=== PATIENT | male | born 1980 ===

== ENCOUNTER 2019-06-30 10:25 | Outpatient (REF) | payer MEDICARE, MEDICAID, SELFPAY ==
[2019-07-02 15:18] LABS: Chlamydia Result Negative (Negative); GC Result Negative (Negative)
== END 2019-06-30 10:45 ==
LOC: LBN 10:25
PROVIDERS: PCP Family Medicine; Visit Provider Family Medicine
DX: Z11.3 Encounter for screening for infections with a predominantly sexual mode of transmission (principal)
CPT/HCPCS: 87491; 87591

== ENCOUNTER 2019-07-27 13:39 | Emergency (ER) | payer MEDICARE, MEDICAID, SELFPAY ==
[2019-07-27 13:41] VITALS: BP 134/69; PULSE 68; RESP 15; TEMP 36.5; O2SAT 98
--- NOTE | 2019-07-27 14:33 | ED.GENADUL_ITS ---
Discharge Plan Disposition Patient Disposition: HOME Condition: Stable Discharge Details Chief Complaint: Nk/Back Pain Clinical Impression: Neck pain Primary Care Provider: Javier Hartley Home Meds and New Rx's Prescriptions: No Action acetylcysteine 600 mg capsule 1,200 mg PO BID RF: 0 melatonin 10 mg capsule 10 mg PO HS PRNRF: 0 turmeric root extract 500 mg capsule 500 mg PO DAILY RF: 0 omega-3 fatty acids-fish oil [Fish Oil] 360-1,200 mg capsule 1 cap PO DAILY RF: 0 Discharge Instructions Instructions: Neck Pain (ED) Additional Instructions: Patient left the ER after evaluation but before formal discharge instructions were given Discharge Data Discharge Date/Time-TO BE ENTERED AT DEPARTURE: 07/27/19 14:37 Medical Decision Making 39-year-old gentleman who presents with posterior left-sided neck pain for the past 2 weeks after sleeping awkwardly with a neck pillow. He reports the pain is worse with movement. Examination reveals no acute distress,, 5 out of 5 strength, no spasm, and patient is neurologically intact. Discomfort is worse with movement especially that elongates his left paravertebral region. There is no midline point tenderness. No meningeal signs. Examination is most consistent with muscular discomfort. I see no evidence of cyst or tumor, erythema, warmth. There is no midline point tenderness. There is no clear indication for x-ray. No indication at this is infectious in process. We discussed conservative therapy with consistent anti-inflammatory therapy, gentle stretching, cool and/or warm compresses. We discussed returning to the ER for new or evolving symptoms otherwise following up with his primary care provider. He did discuss his concern for potential tumor. I again explained to him that I saw nothing on my physical examination that would indicate that there is a tumor present, emergent imaging not indicated, however I did encourage him to bring his concerns to his primary care provider if conservative therapy does not help his symptoms. Patient was agreeable to this plan Medical Records Medical records reviewed: Yes I reviewed the patient's medical records. HPI General Mode of arrival: ambulatory . Date/Time Provider Initiated Documentation: 07/27/19 14:04 . Limitations to Documentation: no limitations . Information obtained by: patient . HPI Narrative: 39-year-old gentleman presents to the ER complaining of left-sided neck pain for approximately 2 weeks. He denies any obvious trauma but reports that he used a neck pillow, slept awkwardly, and when he awoke the pain was present. He reports the pain is mild and is worse with movement. Denies any radiation of this pain, numbness, tingling, weakness. He has occasionally used Motrin for his discomfort but not consistently. Patient has a history of IBS, PTSD. He tells me that he is primarily concerned that he may have a tumor although he does not feel a lump. Denies any recent illness. No additional concerns at this time Related Data Home Medications Medication Instructions Recorded Confirmed acetylcysteine 600 mg capsule 1,200 mg PO BID cap 06/30/19 07/27/19 melatonin 10 mg capsule 10 mg PO HS PRN 06/30/19 07/27/19 omega-3 fatty acids-fish oil 360 1 cap PO DAILY 06/30/19 07/27/19 mg-1,200 mg capsule turmeric root extract 500 mg 500 mg PO DAILY 06/30/19 07/27/19 capsule Allergies Allergy/AdvReac Type Severity Reaction Status Date / Time bacitracin Allergy Hives Unverified 07/27/19 13:46 [From Neosporin ([id number])] neomycin Allergy Hives Unverified 07/27/19 13:46 [From Neosporin ([id number])] Penicillins Allergy Hives Unverified 07/27/19 13:46 polymyxin B Allergy Hives Unverified 07/27/19 13:46 [From Neosporin ([id number])] red dye Allergy Hives Unverified 07/27/19 13:46 General Stated Complaint: Nk/Back Pain SHANTANU: 4 Review of Systems Constitutional Constitutional: Denies fever(s), Denies headache(s) and Denies weakness ENT Ears, Nose, Mouth, and Throat: Denies headache(s), Denies neck mass, Reports neck pain and Denies sore throat Cardiovascular Cardiovascular: Denies chest pain and Denies dyspnea Respiratory Respiratory: Denies dyspnea Musculoskeletal Musculoskeletal: Reports neck pain, Denies numbness and Denies tingling Integumentary/Breasts Skin/Breast: Denies rash Neurologic Neurologic: Denies headache(s), Denies numbness, Denies tingling and Denies weakness [facility] Medical History Cocaine abuse in remission (Acute) Irritable bowel syndrome (Chronic) Major depression in complete remission (Acute) Other schizophrenia (Acute) Plantar wart (Acute) PTSD (post-traumatic stress disorder) (Acute) Surgical History History of repair of ACL (Acute ~2006) Done in [place] Social History Smoking/Tobacco Use Status: Current every day Tobacco: How many years used: 26 Alcohol Intake: current Alcohol Intake frequency: a few times a week Alcohol type: wine Drug use: Daily Substance use type: marijuana Housing: other Details: Living at [facility] - with plan to move into apartment. Communication Needs: Language Barriers current occupation: Works at [employer] Sexually active: Yes Current gender identity: male Do you feel safe at home: Yes Do you feel safe in your relationship?: Yes Exam Const General: cooperative, healthy appearing, comfortable and no acute distress Orientation: alert and awake HENPR Head: normal to inspection, normocephalic and atraumatic Mouth: moist mucous membranes Throat: posterior oropharynx normal Eyes Conjunctivae: conjunctivae normal Neck Neck: normal visual inspection, full ROM, no lymphadenopathy, no meningeal signs, trachea midline, supple and tender (Mild L posterior paravertebral muscular discomfort, worse with movement) Lymphatic: no lymphadenopathy noted Resp Effort & Inspection: normal respiratory effort and able to speak in complete sentences Auscultation: clear to auscultation bilaterally Cardio Rate: regular rate Rhythm: regular rhythm Back/Spine/Pelvis Back: No back tenderness Skin General skin exam: no rashes or lesions noted Neuro General: alert, awake, oriented x3, moves all extremities and no focal motor deficits Motor: muscle tone normal throughout, strength 5/5 throughout and no fasciculations Sensory Exam: no sensory deficits noted Extrem General: normal to inspection and full ROM Psych Appearance: grossly normal Mental Status: mental status grossly normal Course Vital Signs Vital signs: Vital Signs Temperature 36.5 C 07/27/19 13:41 Pulse 68 07/27/19 13:41 Respiratory Rate 15 07/27/19 13:41 Blood Pressure 134/69 07/27/19 13:41 Pulse Oximetry 98 07/27/19 13:41 Temperature 36.5 C 07/27/19 13:41 Temperature Source Temporal Artery Scan 07/27/19 13:41 Pulse 68 07/27/19 13:41 Respiratory Rate 15 07/27/19 13:41 Respiratory Effort Non-Labored 07/27/19 13:45 Blood Pressure 134/69 07/27/19 13:41 Blood Pressure Position Sitting 07/27/19 13:41 Pulse Oximetry 98 07/27/19 13:41 Oxygen Delivery Method Room Air 07/27/19 13:41 Oxygen Flow Rate 0 07/27/19 13:41 Pain Level 4 07/27/19 13:46
== END 2019-07-27 14:37 | disposition home or self-care (01) ==
PROVIDERS: Emergency Provider Physician Assistant; PCP Family Medicine
DX: M54.2 Cervicalgia (principal)
CPT/HCPCS: 99282

== ENCOUNTER 2020-04-25 03:08 | Outpatient (CLI) | payer MEDICARE, MEDICAID, SELFPAY ==
[2020-04-25 12:46] LABS: Calculated LDL 75 mg/dL (<100); Cholesterol 158 mg/dL (<200); HDL Cholesterol 55 mg/dL (40-60); Triglyceride 142 mg/dL (<150)
== END 2020-04-25 03:28 ==
PROVIDERS: PCP Family Medicine; Visit Provider Family Medicine
DX: Z13.6 Encounter for screening for cardiovascular disorders (principal)
CPT/HCPCS: 36415; 80061

== ENCOUNTER → 2020-04-26 13:26 | Outpatient (BNVA) | payer MEDICARE, MEDICAID, SELFPAY | PROVIDERS: PCP Family Medicine; Referring Provider Family Medicine; Visit Provider Surgery | DX: M79.5 Residual foreign body in soft tissue (principal) | CPT/HCPCS: 10120; 99202; 99213 ==

== ENCOUNTER 2020-08-20 05:29 | Emergency (ER) | payer MEDICARE, MEDICAID, SELFPAY ==
--- NOTE | 2020-08-20 05:31 | W.ED.GENAD ---
Discharge Plan Disposition Patient Disposition: HOME Condition: Good Discharge Details Clinical Impression: Abdominal pain, Constipation Primary Care Provider: Javier Hartley ED Provider: [place] Travis Haviland Meds and New Rx's Prescriptions: New polyethylene glycol 3350 [Miralax] 17 gram/dose powder 17 g PO DAILY Qty: 510 RF: 0 omeprazole 20 mg capsule,delayed release(DR/EC) 20 mg PO DAILY Qty: 30 RF: 0 Continued turmeric root extract 500 mg capsule 500 mg PO DAILY RF: 0 omega-3 fatty acids-fish oil [Fish Oil] 360-1,200 mg capsule 1 cap PO DAILY RF: 0 quetiapine [Seroquel] 100 mg tablet 100 mg PO TID PRN (Reason: sleep) Qty: 180 RF: 3 methylphenidate HCl 20 mg tablet 20 mg PO TID MDD 60 mg PRN (Reason: Attention deficit) Qty: 84 RF: 0 methylphenidate HCl 20 mg tablet 20 mg PO TID MDD 60 mg Qty: 84 RF: 0 methadone 10 mg/mL Concentrate 60 mg PO DAILY RF: 0 Discharge Instructions Instructions: Constipation (ED), Abdominal Pain (ED) Additional Instructions: Your symptoms are likely related to the methadone causing constipation and stomach acid causing epigastric discomfort/nausea. Your exam is otherwise unremarkable. Continue taking your fiber. Take the MiraLAX as directed for constipation. Take the omeprazole as directed for acid related disease. Follow-up with primary care in 1 to 2 weeks for recheck. Discussed with [facility] weaning you off methadone if you do not want to continue taking it. Return to ED if you develop spiking fevers, persistent vomiting, new or worsening pain. Referrals: Javier Hartley DO [Primary Care Provider] - Medical Decision Making Patient presents with ongoing abdominal issues that include constipation likely from his methadone as well as epigastric discomfort, early satiety, nausea and occasional vomiting likely acid related disease. Vital signs are normal. Abdomen is completely benign. There are no acute, sudden changes in his symptomatology. I do not feel labs or imaging are required at this time. Patient would like to stop the methadone. This will need to be done through the clinic where he receives it as it has been weaned off. Recommend using MiraLAX on a daily basis to help with constipation. Recommend trying omeprazole for the other abdominal symptoms and give it at least a week or 2 to see if there is any changes. Patient follow-up with his primary care. Return to ED if he develops fever, persistent vomiting, new worsening pain. Medical Records Medical records reviewed: Yes I reviewed the patient's medical records. HPI General Mode of arrival: ambulatory. Date/Time Provider Initiated Documentation: 08/20/20 05:30. Limitations to Documentation: no limitations. Information obtained by: patient, RN notes reviewed and old records reviewed. HPI Narrative: Patient presents to ED with complaint of epigastric discomfort, nausea, early satiety, constipation, occasional vomiting. Symptoms have been ongoing for some time. He missed an appointment with his primary care. He denies any acute change in his symptoms. He has not vomited for 2 days. He has no fever. He has no significant discomfort currently just some mild nausea. He is on methadone daily. He does take fiber to try to help with the constipation. He denies any cough, chest pain, shortness of breath. Denies any urinary symptoms. Related Data Home Medications Medication Instructions Recorded Confirmed omega-3 fatty acids-fish oil 360 1 cap PO DAILY 06/30/19 08/20/20 mg-1,200 mg capsule turmeric root extract 500 mg 500 mg PO DAILY 06/30/19 08/20/20 capsule quetiapine 100 mg tablet 100 mg PO TID PRN #180 tab 06/14/20 08/20/20 methylphenidate HCl 20 mg tablet 20 mg PO TID #84 tab MDD 60 mg 08/09/20 08/20/20 methylphenidate HCl 20 mg tablet 20 mg PO TID PRN #84 tab MDD 60 mg 08/09/20 08/20/20 methadone 60 mg PO DAILY 08/20/20 08/20/20 omeprazole 20 mg PO DAILY #30 cap 08/20/20 polyethylene glycol 3350 [Miralax] 17 g PO DAILY #510 g 08/20/20 Previous Rx's Medication Instructions Recorded quetiapine 100 mg tablet 100 mg PO TID PRN #180 tab 06/14/20 methylphenidate HCl 20 mg tablet 20 mg PO TID #84 tab MDD 60 mg 08/09/20 methylphenidate HCl 20 mg tablet 20 mg PO TID PRN #84 tab MDD 60 mg 08/09/20 omeprazole 20 mg PO DAILY #30 cap 08/20/20 polyethylene glycol 3350 [Miralax] 17 g PO DAILY #510 g 08/20/20 Allergies Allergy/AdvReac Type Severity Reaction Status Date / Time bacitracin Allergy Hives Verified 06/14/20 08:16 [From Neosporin ([id number])] neomycin Allergy Hives Verified 06/14/20 08:16 [From Neosporin ([id number])] Penicillins Allergy Hives Verified 06/14/20 08:16 polymyxin B Allergy Hives Verified 06/14/20 08:16 [From Neosporin ([id number])] red dye Allergy Hives Verified 06/14/20 08:16 General SHANTANU: 4 Review of Systems Narrative: As documented in HPI otherwise negative as below. Const: no fever, chills, weakness Resp: no cough, SOB, pleuritic pain CV: no CP, diaphoresis, edema, syncope GI: no diarrhea Neuro: no headache, numbness, focal weakness, confusion PFSH Medical History ADD (attention deficit disorder) Cocaine abuse in remission Erectile dysfunction Foreign body (FB) in soft tissue 1998, embedded in forehead Irritable bowel syndrome Major depression in complete remission Other schizophrenia Plantar wart 08/18/19 Dr Nichols PTSD (post-traumatic stress disorder) Surgical History History of repair of ACL (~2006) Done in [place] Social History Smoking/Tobacco Use Status: Current every day Tobacco Type: cigarettes Tobacco: How many years used: 26 Second Hand Exposure: Yes Smoking risk assessment performed?: Yes Alcohol Intake: current Alcohol Intake frequency: a few times a week Alcohol type: beer and wine Drug use: Daily Substance use type: marijuana Caregiver/Support person: No Household members: significant other Housing: apartment Communication Needs: Language Barriers current occupation: Works at [employer] Sexually active: Yes Do you think of yourself as: straight/heterosexual Current gender identity: male Yarelis/Orthodoxy: Yazidism Seatbelt use: sometimes Helmet use: No Drive intox or ride w/intox regional o[employer] company driver: No Do you feel safe at home: Yes Do you feel safe in your relationship?: Yes Exam Narrative Exam Narrative: Const: WDWN male in NAD. HEENT: NC/AT. Normal facial exam. Eyes: Normal conjunctiva and sclera. Neck: Supple. Trachea midline. Lungs: Normal respiratory effort. GI: Soft. NT/ND. No guarding or rebound. Neuro: A+O x 3. Normal speech, mentation, gait. Cranial nerves II - XII grossly intact. No gross motor or sensory deficit. Ext: No C/C/E.
[2020-08-20 05:32] VITALS: BP 135/73; PULSE 72; RESP 18; TEMP 36.4; O2SAT 99
== END 2020-08-20 06:00 | disposition home or self-care (01) ==
PROVIDERS: Emergency Provider Emergency Medicine; PCP Family Medicine
DX: R10.13 Epigastric pain (principal); K59.00 Constipation, unspecified; R68.81 Early satiety; R11.2 Nausea with vomiting, unspecified
CPT/HCPCS: 99283

== ENCOUNTER 2020-10-08 11:22 | Emergency (ER) | payer MEDICARE, MEDICAID, SELFPAY ==
[2020-10-08 11:25] VITALS: BP 129/84; PULSE 97; RESP 16; TEMP 36.6; O2SAT 99
--- NOTE | 2020-10-08 11:33 | W.ED.GENAD ---
Discharge Plan Disposition Patient Disposition: HOME Condition: Stable Discharge Details Clinical Impression: Knee pain, right Primary Care Provider: Javier Hartley ED Provider: Isaias Nolan Home Meds and New Rx's Prescriptions: Continued turmeric root extract 500 mg capsule 500 mg PO DAILY RF: 0 omega-3 fatty acids-fish oil [Fish Oil] 360-1,200 mg capsule 1 cap PO DAILY RF: 0 quetiapine [Seroquel] 100 mg tablet 100 mg PO TID PRN (Reason: sleep) Qty: 180 RF: 3 clonidine HCl 0.1 mg tablet 0.1 mg PO .COMPLEX Qty: 180 RF: 6 methylphenidate HCl 20 mg tablet 20 mg PO TID MDD 60 mg PRN (Reason: Attention deficit) Qty: 84 RF: 0 methylphenidate HCl 20 mg tablet 20 mg PO TID MDD 60 mg Qty: 84 RF: 0 polyethylene glycol 3350 [Miralax] 17 gram/dose powder 17 g PO DAILY Qty: 510 RF: 0 omeprazole 20 mg capsule,delayed release(DR/EC) 20 mg PO DAILY Qty: 30 RF: 0 Discharge Instructions Instructions: Knee Pain (ED) Additional Instructions: your exam and history is consistent with likely knee strain you can take 1000mg tylenol and 600mg ibuprofen every 6 hours for pain as needed follow up with your primary care provider within 1-2 weeks if symptoms continue if you have fevers, the knee becomes swollen and red or warm to touch return to the emergency department Medical Decision Making 40 yo male comes in with 2 weeks of nontraumatic right knee pain. 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 He took some time off and rested and the knee felt better but he again worked yesterday and pain returned. No fevers or swelling, denies ivdu and no rashes. Denies significant knee swelling. He has no visible or palpable deformities on exam. No swelling. No erythema or warmth. He can fully range the knee and has intact distal sensation. He has tenderness along in medial joint line. No calf swelling or tenderness. His exam and history consistent with either overuse injury or strain, less likely meniscus injury. Exam and history not consistent with septic joint. Given lack of trauma and full range of motion doubt fracture and do not feel xrays indicated. Will provide knee brace and advised to f/u with pcp if pain continues for possible MRI. Return precautions also given Differential Diagnosis Differential Diagnosis: overuse, strain, sprain, meniscus injury HPI General Mode of arrival: ambulatory. Date/Time Provider Initiated Documentation: 10/08/20 11:29. Limitations to Documentation: no limitations. Information obtained by: patient. History of Present Illness 40 year old M presents to the emergency department with the chief complaint of right knee pain, described as moderate, Quality is described as aching, and is localized to the right and lower extremity. Patient reports no radiation. Patient started experiencing this week(s) (2) and it has been intermittent. Rest improves symptom(s), Movement worsens symptoms . Patient notes no other symptoms.. Related Data Home Medications Medication Instructions Recorded Confirmed omega-3 fatty acids-fish oil 360 1 cap PO DAILY 06/30/19 10/08/20 mg-1,200 mg capsule turmeric root extract 500 mg 500 mg PO DAILY 06/30/19 10/08/20 capsule quetiapine 100 mg tablet 100 mg PO TID PRN #180 tab 06/14/20 10/08/20 omeprazole 20 mg PO DAILY #30 cap 08/20/20 10/08/20 polyethylene glycol 3350 [Miralax] 17 g PO DAILY #510 g 08/20/20 10/08/20 clonidine HCl 0.1 mg tablet 0.1 mg PO .COMPLEX #180 tab 10/06/20 10/08/20 methylphenidate HCl 20 mg tablet 20 mg PO TID #84 tab MDD 60 mg 10/06/20 10/08/20 methylphenidate HCl 20 mg tablet 20 mg PO TID PRN #84 tab MDD 60 mg 10/06/20 10/08/20 Previous Rx's Medication Instructions Recorded quetiapine 100 mg tablet 100 mg PO TID PRN #180 tab 06/14/20 omeprazole 20 mg PO DAILY #30 cap 08/20/20 polyethylene glycol 3350 [Miralax] 17 g PO DAILY #510 g 08/20/20 clonidine HCl 0.1 mg tablet 0.1 mg PO .COMPLEX #180 tab 10/06/20 methylphenidate HCl 20 mg tablet 20 mg PO TID #84 tab MDD 60 mg 10/06/20 methylphenidate HCl 20 mg tablet 20 mg PO TID PRN #84 tab MDD 60 mg 10/06/20 Allergies Allergy/AdvReac Type Severity Reaction Status Date / Time bacitracin Allergy Hives Verified 10/08/20 11:30 [From Neosporin ([id number])] neomycin Allergy Hives Verified 10/08/20 11:30 [From Neosporin ([id number])] Penicillins Allergy Hives Verified 10/08/20 11:30 polymyxin B Allergy Hives Verified 10/08/20 11:30 [From Neosporin ([id number])] red dye Allergy Hives Verified 10/08/20 11:30 General Stated Complaint: Orthopedic SHANTANU: 4 Review of Systems All systems reviewed & are unremarkable except as noted in HPI and below Constitutional Constitutional: Denies chills, Denies fever(s) and Denies weakness Cardiovascular Cardiovascular: Denies chest pain and Denies dyspnea Respiratory Respiratory: Denies cough and Denies dyspnea Gastrointestinal Gastrointestinal: Denies abdominal pain, Denies nausea and Denies vomiting Genitourinary Genitourinary: Denies dysuria Musculoskeletal Musculoskeletal: Denies joint swelling Neurologic Neurologic: Denies weakness [facility] Medical History (Updated 10/08/20 @ 11:44 by Isaias Nolan MD) ADD (attention deficit disorder) Cocaine abuse in remission Erectile dysfunction Foreign body (FB) in soft tissue 1998, embedded in forehead Irritable bowel syndrome Major depression in complete remission Opiate dependence On methadone Other schizophrenia Plantar wart 08/18/19 Dr Nichols PTSD (post-traumatic stress disorder) Surgical History History of repair of ACL (~2006) Done in [place] Family History (Updated 08/26/20 @ 13:51 by Carly Fang RN) Brother Anxiety Depression Sister Anxiety Depression Nephew Anxiety Depression Mother Hypertension Social History (Updated 08/26/20 @ 11:13 by Carly Fang RN) Smoking/Tobacco Use Status: Current every day Tobacco Type: cigarettes Smoking packs per day: 0.5 Smoking cigarettes per day: 10.0 Tobacco: How many years used: 26 Quit status: considering quitting Second Hand Exposure: Yes Smoking risk assessment performed?: Yes Alcohol Intake: never Drug use: Daily Substance use type: marijuana Caregiver/Support person: No Housing: apartment Communication Needs: Language Barriers current occupation: Works at [employer] Pets and animals: No Sexually active: Yes Do you think of yourself as: straight/heterosexual Current gender identity: male What is your relationship status?: How often do you talk on the phone with friends or family?: three or more times per week How often do you get together with friends or relatives?: three or more times per week How often do you attend baptism or restorationist services?: 4 or more times per year Do you belong to any clubs or organized social groups?: no Panel score (0-1 are the most socially isolated patients): 2 What type of physical activity do you participate in: none Yarelis/Baptist: Temple Special yarelis needs: No Seatbelt use: always Helmet use: Yes Drive intox or ride w/intox substitute bus driver: No Do you feel safe at home: Yes Do you feel safe in your relationship?: Yes Victim of physical abuse: No Victim of emotional abuse: No Victim of sexual abuse: No Would you like helpful sources: No Exam Const General: no acute distress Orientation: alert HENMT Head: normal to inspection Ears: external ears normal General nose exam: external nose normal Mouth: moist mucous membranes Eyes General: appearance normal, both eyes and all related structures Neck Neck: normal visual inspection Resp Effort & Inspection: normal respiratory effort and able to speak in complete sentences Cardio Rate: regular rate Skin General skin exam: no rashes or lesions noted Neuro General: patient alert and patient oriented x3 Extrem General: full ROM and capillary refill normal Psych Mental Status: mental status grossly normal Course Vital Signs Vital signs: Vital Signs Temperature 36.6 C 10/08/20 11:25 Pulse 97 H 10/08/20 11:25 Respiratory Rate 16 10/08/20 11:25 Blood Pressure 129/84 10/08/20 11:25 Pulse Oximetry 99 10/08/20 11:25 Temperature 36.6 C 10/08/20 11:25 Temperature Source Temporal Artery Scan 10/08/20 11:25 Pulse 97 H 10/08/20 11:25 Respiratory Rate 16 10/08/20 11:25 Respiratory Effort Non-Labored 10/08/20 11:29 Blood Pressure 129/84 10/08/20 11:25 Blood Pressure Position Sitting 10/08/20 11:25 Pulse Oximetry 99 10/08/20 11:25 Oxygen Delivery Method Room Air 10/08/20 11:25 Oxygen Flow Rate 0 10/08/20 11:25 Pain Level 5 10/08/20 11:25
== END 2020-10-08 11:49 | disposition home or self-care (01) ==
PROVIDERS: Emergency Provider Emergency Medicine; PCP Family Medicine
DX: M25.561 Pain in right knee (principal)
CPT/HCPCS: 29505; 99283

== ENCOUNTER 2020-10-19 02:19 | Outpatient (CLI) | payer MEDICARE, MEDICAID, SELFPAY ==
--- NOTE | 2020-10-19 06:45 | DI.RAD_ITS ---
Exam(s) XR KNEE RT 3V AP,LAT,NYLA EXAM: XR KNEE RT 3V AP,LAT,NYLA CLINICAL HISTORY: Non-traumatic R knee pain.,M25.561. TECHNIQUE: 2D digital imaging was performed. COMPARISON: None FINDINGS: There is no evidence of fracture. . Small amount of increased fluid noted but no large joint effusio n. No degenerative changes. No osseous lesions. Bone density is age appropriate. IMPRESSION: DATA REPOSITORY: RADIATION DOSE DELIVERED:
== END 2020-10-19 02:39 ==
PROVIDERS: PCP Family Medicine; Visit Provider Family Medicine
DX: M25.561 Pain in right knee (principal)
CPT/HCPCS: 73562

== ENCOUNTER 2020-12-04 17:54 | Emergency (ER) | payer MEDICARE, MEDICAID, SELFPAY ==
--- NOTE | 2020-12-04 17:59 | NUR.NOTE ---
Nursing Note: Patient stated to [facility] that he would not stay because his girlfriend could not come in to the ED with him. She stated she was vaccinated, but unable to show proof of this with her card. Anabel Madrid
== END 2020-12-04 18:00 | disposition left before discharge ==
LOC: ER 18:01
PROVIDERS: PCP Family Medicine
DX: Z53.21 Procedure and treatment not carried out due to patient leaving prior to being seen by health care provider (principal)

== ENCOUNTER 2020-12-04 18:47 | Emergency (ER) | payer MEDICARE, MEDICAID, SELFPAY ==
[2020-12-04 18:53] VITALS: BP 127/73; PULSE 58; RESP 16; TEMP 37.3; O2SAT 100
--- NOTE | 2020-12-04 19:30 | DI.CT_ITS ---
Exam(s) CT HEAD WO EXAM: CT HEAD WO CLINICAL HISTORY: hitting head, headache. TECHNIQUE: Imaging Protocol: Axial computed tomography images with coronal and sagittal reformatted images were created and reviewed COMPARISON: No exams were available for comparison FINDINGS: There are no skull fractures nor fluid in the visualized paranasal sinuses. There is no evidence of intracranial hemorrhage, mass effect, or shift of midline structures. There are no extra-axial fluid collections. The ventricles are not enlarged or shifted and there is no blo od within the ventricular system nor within the basal cisterns. IMPRESSION: No acute intracranial findings on this noninfused CT scan of the brain. RADIATION DOSE DELIVERED: 730.18mGy.cm Total DLP DATA REPOSITORY: All CT scans at this facility are submitted to the National Radiology Data Registry (NRDR) Dose Index Registry (DIR) with the [employer] (ACR). RADIATION OPTIMIZATION: All CT scans at this facility use at least one of these dose optimization te chniques: automated exposure control; mA and/or kV adjustment per patient size (includes targeted exa ms where dose is matched to clinical indication); or iterative reconstruction.
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
[2020-12-04 19:56] LABS: Abs Immature Grans 0.02 10^3/uL (0.0-0.06); Absolute Basophil Count 0.05 10^3/uL (0.0-0.2); Absolute Eosinophil Count 0.07 10^3/uL (0.0-0.7); Absolute Lymphocyte Count 2.32 10^3/uL (1.2-3.4); Absolute Monocyte Count 0.71 10^3/uL (0.1-0.8); Absolute Neutrophil Count 5.88 10^3/uL (1.2-6.7); Basophils % 0.6; Eosinophils % 0.8; HCT 42.3 % (40.0-50.0); HGB 14.1 g/dL (13.5-17.5); Immature Grans % 0.2; Lymphocytes % 25.6; MCH 29.6 pg (27.0-33.0); MCHC 33.3 % (32.0-36.0); MCV 88.9 fL (80-95); Monocytes % 7.8; Nucleated RBC 0 %; Platelet Count 228 10^3/uL (130-400); RBC 4.76 10^6/uL (4.36-5.78); RDW 12.3 % (11.8-14.1); RDW-SD 40.7 fL; WBC 9.05 10^3/uL (4.4-10.8)
[2020-12-04 20:08] LABS: ALT 33 U/L (16-63); AST 31 U/L (15-37); Albumin 3.5 g/dL (3.4-5.0); Alkaline Phosphatase 56 U/L (46-116); Anion Gap 9.6 mmol/L (3-11); BUN 7 mg/dL (7-18); Bilirubin, Total 0.3 mg/dL (0.2-1.0); CO2 28.4 mmol/L (21.0-32.0); Calcium 8.7 mg/dL (8.5-10.1); Chloride 105 mmol/L (98-107); Glucose 120 mg/dL (74-106); Potassium 3.5 mmol/L (3.5-5.1); Sodium 143 mmol/L (136-145); Total Protein 6.9 g/dL (6.4-8.2)
--- NOTE | 2020-12-04 20:21 | DI.VRAD_ITS ---
PROCEDURE INFORMATION: Exam: CT Head Without Contrast Exam date and time: 12/04/2020 7:38 PM Age: 40 years old Clinical indication: Pain; Headache not specified; Patient HX: Hitting head, headache on both sides TECHNIQUE: Imaging protocol: Computed tomography of the head without contrast. Radiation optimization: All CT scans at this facility use at least one of these dose optimization techniques: automated exposure control; mA and/or kV adjustment per patient size (includes targeted exams where dose is matched to clinical indication); or iterative reconstruction. COMPARISON: No relevant prior studies available. FINDINGS: Brain: Normal. No hemorrhage. Unremarkable white matter. No mass effect. Cerebral ventricles: No ventriculomegaly. Paranasal sinuses: Visualized sinuses are unremarkable. No fluid levels. Mastoid air cells: Visualized mastoid air cells are well aerated. Bones/joints: Unremarkable. No acute fracture. Soft tissues: Unremarkable. IMPRESSION: No acute intracranial abnormality. Dictated and Authenticated by: Juan Gómez MD. Ordering:JOEY Wild MD
[2020-12-04 20:25] LABS: ETHANOL BLOOD < 3.0 mg/dL (<3); Salicylate < 2.8 mg/dL (<2.8)
[2020-12-04 20:26] LABS: Acetaminophen < 2 ug/mL (10-30)
[2020-12-04] MEDS: QUEtiapine 100 MG TAB PO (20:37)
[2020-12-04 20:44] LABS: Source Nasal/Nares
[2020-12-04 21:12] LABS: *AMPHETAMINES SCREEN URINE Negative (Negative); *BARBITURATES SCREEN URINE Negative (Negative); *BENZODIAZEPINES SCREEN URINE Negative (Negative); Cannabinoids THC Positive (Negative); Cocaine Screen,Urine Positive (Negative); METHADONE URINE SCREEN Negative (Negative); OPIATES URINE SCREEN Negative (Negative); Tricyclic Antidepressants Negative (Negative)
[2020-12-04 21:43] LABS: COVID-19 PCR Negative (Negative)
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
--- NOTE | 2020-12-05 09:34 | NUR.NOTE ---
Care management in roomNursing Note:
[2020-12-05] MEDS: QUEtiapine 100 MG TAB PO ×3 (09:49→20:43)
--- NOTE | 2020-12-05 10:04 | NUR.NOTE ---
PTs humane officer came into ED and presented us with his badge and let us know that he needed to cut off ankle bracelet. This CLINICAL RESEARCH SPEC was present the entire time and PT was cooperative. RN notified.Nursing Note:
--- NOTE | 2020-12-05 10:59 | NUR.NOTE ---
Mental health in room with PT Nursing Note:
--- NOTE | 2020-12-05 11:08 | PDOC.MHCN ---
Date of service: 12/05/20 Time of Service: 11:09 Mental Health Crisis Note Presenting Issue How did you arrive at the ED and why did you come: Pt arrived on 12.04.2020 via his girlfriend due to an increase in depression with SI, plan, attempt and persistent intent. Precipitating Factors Pt endorsed continued persistent suicidal ideation. He does not appear to have any signs of delusions however, also does not engage in much conversation either. Disposition BEHAVIOR: Pt is lying in bed covered with his blanket. He does not make any eye contact even to acknowledge this clinician or the other ESC, Zoe Gillespie in the room. It is reported by the overnight and day time providers to not be a behavior problem. However, it was reported somewhere that this Pt has a history of explosive behaviors and this has not been made clear as to where that information came from. EYE CONTACT: Pt refused to make eye contact. MOOD: Pt endorsed he is still feeling the same as he did when he arrived. AFFECT: Affect is non-engaging with eyes closed and at one point tearful. APPETITE: Pt reported that he is not he is not hungry and has not eaten anything today. SLEEP(trouble falling/staying asleep: Pt reported that he slept in the entire night without issue. Plan Pt is still seeking voluntary admission and hospitals have been called. Referrals are sent to [facility], [facility], [facility] and [facility]. [facility] has many waiting in their ER. A huddle was had and we will wait to hear back form the hospitals we made referrals too. Signature Clinician's Name/Title: Anuja Cm MS, [facility] Emergency Services Clinician, [facility]
--- NOTE | 2020-12-05 11:36 | NUR.NOTE ---
in room. Nursing Note:
--- NOTE | 2020-12-05 12:49 | CMSP_ITS ---
- If Service Date Differs Date of service: 12/05/20 Time of Service: 12:49 Care Management Safety Plan Status: Voluntary - Reason for Wait Reason for Wait: Inpatient Admission VOLUNTARY FOR INPATIENT PSYCHIATRIC STABILIZATION. Patient is appropriate in all interactions since arriving at [facility]; Pt has demonstrated appropriate coping and communication skills, has articulated his or her needs and concerns and is fully engaged during staff interactions. A huddle is held with Salina, nursing production welding supervisor, Dr. Alexandra Haskins, ED provider, Shelby, charge nurse, Anuja [facility], Zoe [facility], and GENARO Collins, in attendance. Safety plan has been established with patient, and care team, to adhere to patient goals, identify restrictions based on behavioral status, address nutrition, and determine allowed personal belongings, tools for hygiene and personal care. Determine level of activity including ambulation, level of supervision, visitors, and determine privileges based on behaviors and level of engagement by pt. SAFETY PLAN: 1. Will remain on suicide precautions. In Paper Clothes 2. Will remain in room under direct supervision of one-on-one staff at all times provided by CPSO, KIANNA, MATERIALS MANAGEMENT SUPERVISOR health information director. 3. May have paper cups, plates, finger foods as well as a cardboard spoon with which to eat meals. 4. Follow [facility] Management of the Admitted Behavioral Health Patient policy. 5. Personal Care: Shower permitted with supervision and at RN discretion. 6. No personal belongings. 7. Visitors: Per [facility] visitor policy and at RN discretion. 8. Activities: Soft cart items, music tablet, television and remote if available, and other activities at RN discretion. 9. Bathroom privileges with escort while in the ED. May use bathroom available in room without restrictions on Med/Surg. 10. Phone: May use hospital phone for incoming and outgoing telephone calls at RN discretion. 11. Due to VOLUNTARY status, if patient wishes to leave [facility], staff will contact [facility] Crisis Screener ([phone]) and On-Call Waxer Floor ([phone]) as soon as possible. In the event of elopement, notify [facility] Police ([phone]). Patient is currently voluntarily at [facility] and seeking inpatient admission when a bed becomes available. [facility] Frontline Emd Teacher will continue seeking placement. Please contact the Looping Machine Operator Waxer Floor ([phone]) and [facility] Emd Teacher ([phone]) for any needed changes in the Safety Plan. Safety plan has been provided to interdepartmental care team.
--- NOTE | 2020-12-05 12:49 | PDOC.CMSAFED ---
- If Service Date Differs Date of service: 12/05/20 Time of Service: 12:49 Care Management Safety Plan Status: Voluntary - Reason for Wait Reason for Wait: Inpatient Admission VOLUNTARY FOR INPATIENT PSYCHIATRIC STABILIZATION. Patient is appropriate in all interactions since arriving at [facility]; Pt has demonstrated appropriate coping and communication skills, has articulated his or her needs and concerns and is fully engaged during staff interactions. A huddle is held with Salina, nursing home health clinical supervisor, Dr. Alexandra Haskins, ED provider, Shelby, charge nurse, Anuja [facility], Zoe [facility], and GENARO Collins, in attendance. Safety plan has been established with patient, and care team, to adhere to patient goals, identify restrictions based on behavioral status, address nutrition, and determine allowed personal belongings, tools for hygiene and personal care. Determine level of activity including ambulation, level of supervision, visitors, and determine privileges based on behaviors and level of engagement by pt. SAFETY PLAN: 1. Will remain on suicide precautions. In Paper Clothes 2. Will remain in room under direct supervision of one-on-one staff at all times provided by CPSO, KIANNA, PHYSICIST LIGHT AND OPTICS fundraising coordinator. 3. May have paper cups, plates, finger foods as well as a cardboard spoon with which to eat meals. 4. Follow [facility] Management of the Admitted Behavioral Health Patient policy. 5. Personal Care: Shower permitted with supervision and at RN discretion. 6. No personal belongings. 7. Visitors: Per [facility] visitor policy and at RN discretion. 8. Activities: Soft cart items, music tablet, television and remote if available, and other activities at RN discretion. 9. Bathroom privileges with escort while in the ED. May use bathroom available in room without restrictions on Med/Surg. 10. Phone: May use hospital phone for incoming and outgoing telephone calls at RN discretion. 11. Due to VOLUNTARY status, if patient wishes to leave [facility], staff will contact [facility] Crisis Screener ([phone]) and On-Call Tree Surgeon ([phone]) as soon as possible. In the event of elopement, notify [facility] Police ([phone]). Patient is currently voluntarily at [facility] and seeking inpatient admission when a bed becomes available. [facility] Frontline Screening Tech will continue seeking placement. Please contact the Laborer Dairy Farm Tree Surgeon ([phone]) and [facility] Screening Tech ([phone]) for any needed changes in the Safety Plan. Safety plan has been provided to interdepartmental care team.
[2020-12-05] MEDS: Ibuprofen 600 MG TAB PO (14:14)
--- NOTE | 2020-12-05 14:51 | CMPROGNOTE_ITS ---
- If Service Date Differs Date of service: 12/05/20 Time of Service: 14:51 Care Management Progress Note S/O: Brian is a 40 year old male who presents to the ED for suicidal ideation with intent and plan. He has the bedsheet pulled over his head when CM comes to meet with him. He provides brief answers to questions asked of him but does not uncover his head during the conversation. Brian is reportedly on probation for charges unknown to this publicity writer. His tactical intelligence officer is Reed Marsh ([phone]). Brian is voluntarily seeking placement. He was evaluated by Seng, [facility] Crisis Workers, this morning and found to meet criteria for a psychiatric hospitalization. A: Brian remains at [facility] awaiting a voluntary psychiatric placement. P: Referrals are faxed to [facility], [facility], [facility], and [facility] for review. There are no available psychiatric beds today. Brian will remain at [facility] on voluntary status while [facility] continues to seek placement for him. CM will continue to follow. - Status Status: Voluntary - Reason for Wait Reason for Wait: Inpatient Admission
[2020-12-05] MEDS: LORazepam 1 MG TAB PO (20:42)
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
[2020-12-06] MEDS: QUEtiapine 100 MG TAB PO ×3 (06:07→23:23)
[2020-12-06] MEDS: LORazepam 1 MG TAB PO ×3 (07:28→23:22)
--- NOTE | 2020-12-06 11:47 | PDOC.MHCN ---
Date of service: 12/06/20 Time of Service: 11:47 Mental Health Crisis Note Presenting Issue How did you arrive at the ED and why did you come: Pt arrived 2 days ago via his fiance seeking a voluntary psychiatric admission. Precipitating Factors Pt continued to endorse SI today and denied HI. He reported that his SI is chronic in nature and if he was going to kill himself he would have done it a long time a go. He does however, endorse auditory hallucinations. Disposition BEHAVIOR: This clinician participated in the PT's second certification with Dr. Jef Camacho from [facility]. Pt was initially resistant and not engaging but was able to some near the end. The Pt stated that he is stressed and sick of people targeting him. EYE CONTACT: Eye contact varied with the psychiatrist and was more consistent with this clinician when explaining the questions being asked. MOOD: Mood appeared depressed and agitated. AFFECT: Affect is flat. APPETITE: Pt reported he is eating well. SLEEP(trouble falling/staying asleep: Pt has been sleeping fine. Plan Pt will remain at [facility] on EE status. Placement was sought and no beds available today. Pt will be assessed twice daily until placement is found or he is able to regulate and be able to safety plan home. Signature Clinician's Name/Title: Anuja Cm MS, [facility] Emergency Services Clinician
--- NOTE | 2020-12-06 14:35 | CMSP_ITS ---
- If Service Date Differs Date of service: 12/06/20 Time of Service: 14:35 Care Management Safety Plan Status: Involuntary - Reason for Wait Reason for Wait: Inpatient Admission INVOLUNTARY FOR INPATIENT PSYCHIATRIC STABILIZATION. A huddle is held at approximately 11:45 am with Rosalio, ED Director, Salina, nursing mammography supervisor, Nadja, charge nurse, Erica, RN, Yuli, RN, Anuja, [facility], and Karina LAM. Safety plan has been established to meet the needs of the patient, and consideration of the care team, to adhere to patient goals, identify restrictions based on behavioral status, address nutrition, and determine allowed personal belongings, tools for hygiene and personal care. Determine level of activity including ambulation, level of supervision, visitors, and determine privileges based on behaviors and level of engagement by pt. SAFETY PLAN: 1. Will remain on SI/HI precautions. In Paper Clothes 2. Will remain in room under direct supervision of one-on-one staff at all times provided by CPSO, KIANNA, RETAIL ASSISTANT STORE MANAGER artificial breast fabricator. 3. May have paper cups, plates, finger foods as well as a cardboard spoon with which to eat meals. 4. Follow [facility] Management of the Admitted Behavioral Health Patient policy. 5. Personal care: Shower permitted with supervision at RN discretion. 6. No personal belongings. 7. Visitors: Per [facility] visitor police and at RN discretion. 8. Activities: Soft cart items, music tablet, television and remote if available, and other activities at RN discretion. 9. Bathroom privileges with escort while in the ED. May use bathroom available in room without restrictions on Med/Surg. 10. Phone: May use hospital phone for incoming and outgoing telephone calls at RN discretion. 11. Due to INVOLUNTARY status, patient is being held at [facility] by the Department of Mental Health ([facility]). A 2nd certification by [facility] Psychiatrist occurred this morning and the EE was upheld by the State Psychiatrist. Staff will provide de- escalation support (CPI) as needed. If patient wishes to leave [facility], staff will contact [facility] Crisis Screener ([phone]) and On-Call Field Naturalist ([phone]) as soon as possible. In the event of elopement, notify [facility] Police ([phone]). Patient is currently involuntarily at [facility]. [facility] Frontline Real Estate Investor will continue seeking placement. Please contact the Asphalt Patcher Field Naturalist ([phone]) for any needed changes to Safety Plan. Safety plan has been provided to interdepartmental care team. Patient will be transported by sheriff's officer at time of discharge.
--- NOTE | 2020-12-06 14:35 | PDOC.CMSAFED ---
- If Service Date Differs Date of service: 12/06/20 Time of Service: 14:35 Care Management Safety Plan Status: Involuntary - Reason for Wait Reason for Wait: Inpatient Admission INVOLUNTARY FOR INPATIENT PSYCHIATRIC STABILIZATION. A huddle is held at approximately 11:45 am with Rosalio, ED Director, Salina, nursing shell shop supervisor, Nadja, charge nurse, Erica, RN, Yuli, RN, Anuja, [facility], and Karina LAM. Safety plan has been established to meet the needs of the patient, and consideration of the care team, to adhere to patient goals, identify restrictions based on behavioral status, address nutrition, and determine allowed personal belongings, tools for hygiene and personal care. Determine level of activity including ambulation, level of supervision, visitors, and determine privileges based on behaviors and level of engagement by pt. SAFETY PLAN: 1. Will remain on SI/HI precautions. In Paper Clothes 2. Will remain in room under direct supervision of one-on-one staff at all times provided by CPSO, KIANNA, HOT TOP LINER hydro generation supervisor. 3. May have paper cups, plates, finger foods as well as a cardboard spoon with which to eat meals. 4. Follow [facility] Management of the Admitted Behavioral Health Patient policy. 5. Personal care: Shower permitted with supervision at RN discretion. 6. No personal belongings. 7. Visitors: Per [facility] visitor police and at RN discretion. 8. Activities: Soft cart items, music tablet, television and remote if available, and other activities at RN discretion. 9. Bathroom privileges with escort while in the ED. May use bathroom available in room without restrictions on Med/Surg. 10. Phone: May use hospital phone for incoming and outgoing telephone calls at RN discretion. 11. Due to INVOLUNTARY status, patient is being held at [facility] by the Department of Mental Health ([facility]). A 2nd certification by [facility] Psychiatrist occurred this morning and the EE was upheld by the State Psychiatrist. Staff will provide de-escalation support (CPI) as needed. If patient wishes to leave [facility], staff will contact [facility] Crisis Screener ([phone]) and On-Call Envelope Cutter ([phone]) as soon as possible. In the event of elopement, notify [facility] Police ([phone]). Patient is currently involuntarily at [facility]. [facility] Frontline Clinical Nurse Reviewer will continue seeking placement. Please contact the Billiard Table Assembler Envelope Cutter ([phone]) for any needed changes to Safety Plan. Safety plan has been provided to interdepartmental care team. Patient will be transported by corrugated box machine operator at time of discharge.
--- NOTE | 2020-12-06 17:23 | PDOC.ERCMPRO ---
- If Service Date Differs Date of service: 12/06/20 Time of Service: 17:23 Care Management Progress Note S/O: Brian was asking to leave the hospital last evening. He was assessed by [facility] Security And Privacy Consultant, and subsequently placed on involuntary status. This morning, Brian met with a State Psychiatrist for the Second Certification by Psychiatrist and the EE was upheld. This afternoon, Brian is again stating that he wants to leave. CM is asked by the ED provider to meet with Brian and his girlfriend to explain to them that he is unable to leave due to being on involuntary status. After explaining the process to them, Brian advised that he is not going to take any medications and is not going to talk to any counselors. He further shared that he has been psychiatrically hospitalized several times and that it has never benefited him. Brian began speaking louder and at a faster rate and began cussing at this chief writer at which point I left the room. CM will continue to follow. A: Brian remains at [facility] awaiting an involuntary psychiatric placement. P: Referrals are faxed to [facility], [facility], [facility], and [facility] for review. There are no available psychiatric beds again today. Brian will remain at [facility] on involuntary status while [facility] continues to seek placement for him. CM will continue to follow.
--- NOTE | 2020-12-06 18:35 | PDOC.MHCN_ITS ---
Date of service: 12/06/20 Time of Service: 17:45 Mental Health Crisis Note Presenting Issue How did you arrive at the ED and why did you come: Patient is currently on involuntary status as of 12.06.20 and is seen for a follow-up assessment. Precipitating Factors Patient refused to engage. He reported that he will decline all medications and therapeutic interventions and verbalized wanting to discharge home during brief interaction. Disposition BEHAVIOR: Agitated, not cooperative EYE CONTACT: Fleeting MOOD: N/A AFFECT: Agitated APPETITE: N/A SLEEP(trouble falling/staying asleep: N/A Plan The patient will remain on involuntary status and be seen daily by [facility] until he can be transferred to suitable psychiatric in-patient facility. Signature Clinician's Name/Title: Bryant Villavicencio [facility] JESSE clinician / [email or web address]
--- NOTE | 2020-12-06 20:38 | NUR.NOTE ---
refused Seroquel at this time stating he will take later. requested to go outside and smoke. explained he cannot. His girlfriend asked if he could have Nicotine gum, he has own supply. Dr. Haskins approved and girlfriend took 3 pieces 2mg each. :
--- NOTE | 2020-12-06 22:59 | NUR.NOTE ---
refused night time meds, states he will take later. sitting on stretcher with girlfriend
--- NOTE | 2020-12-06 23:57 | NUR.NOTE ---
report given to ROBBIN Moreno
[2020-12-07] MEDS: LORazepam 1 MG TAB PO ×2 (12:00→17:46)
[2020-12-07] MEDS: QUEtiapine 100 MG TAB PO ×2 (12:00→17:47)
--- NOTE | 2020-12-07 14:16 | PDOC.MHCN ---
Date of service: 12/07/20 Time of Service: 12:00 Mental Health Crisis Note Presenting Issue How did you arrive at the ED and why did you come: Client arrived to ED via private transport with concerns of SI with intent and plan. Precipitating Factors Client denied SI/HI during this assessment. However, client also refused to engage much with this clinician and kept stating: I am fine. I want to go home Disposition BEHAVIOR: Client presented as uncooperative, guarded and irritable. Client presented with no insight, poor judgment and poor thought process / content. EYE CONTACT: Client maintained appropriate eye contact MOOD: Client presented with depressed and withdrawn mood. Client also presented with irritable mood AFFECT: Client presented with flat affect. APPETITE: Client reported a decrease in his appetite SLEEP(trouble falling/staying asleep: Client reported he sleeps to pass the wait time Plan Client will remain on involuntary status and will be assessed by [facility] twice daily till he is placed to an appropriate in-patient treatment facility. There are currently no beds available.
--- NOTE | 2020-12-07 17:36 | CMSP_ITS ---
- If Service Date Differs Date of service: 12/07/20 Time of Service: 17:36 Care Management Safety Plan Status: Involuntary - Reason for Wait Reason for Wait: Inpatient Admission INVOLUNTARY FOR INPATIENT PSYCHIATRIC STABILIZATION. A huddle is held this afternoon with Dr. Gonzalez, ED provider, Salina, nursing documentation supervisor, Coretta, charge nurse, Phi, RN, Maribel, RN, and GENARO Collins. Safety plan has been established to meet the needs of the patient, and consideration of the care team, to adhere to patient goals, identify restrictions based on behavioral status, address nutrition, and determine allowed personal belongings, tools for hygiene and personal care. Determine level of activity including ambulation, level of supervision, visitors, and determine privileges based on behaviors and level of engagement by pt. SAFETY PLAN: 1. Will remain on SI/HI precautions. In Paper Clothes 2. Will remain in room under direct supervision of one-on-one staff at all times provided by CPSO, KIANNA, FAMILY CONSUMER SCIENTIST malt house kiln operator. 3. May have paper cups, plates, finger foods as well as a cardboard spoon with which to eat meals. 4. Follow [facility] Management of the Admitted Behavioral Health Patient policy. 5. Personal care: Shower permitted with supervision at RN discretion. 6. No personal belongings. 7. Visitors: Per [facility] visitor policy and at RN discretion. Visits will end at 10:00 pm. 8. Activities: Soft cart items, music tablet, television and remote if available, and other activities at RN discretion. 9. Bathroom privileges with escort while in the ED. May use bathroom available in room without restrictions on Med/Surg. 10. Phone: May use hospital phone for incoming and outgoing telephone calls at RN discretion. 11. Due to INVOLUNTARY status, patient is being held at [facility] by the Department of Mental Health ([facility]). A 2nd certification by [facility] Psychiatrist occurred this morning and the EE was upheld by the State Psychiatrist. Staff will provide de- escalation support (CPI) as needed. If patient wishes to leave [facility], staff will contact [facility] Crisis Screener ([phone]) and On-Call Ship'S Surveyor ([phone]) as soon as possible. In the event of elopement, notify [facility] Police ([phone]). Patient is currently involuntarily at [facility]. [facility] Frontline Tassel Maker will continue seeking placement. Please contact the Certified Master Safecracker Ship'S Surveyor ([phone]) for any needed changes to Safety Plan. Safety plan has been provided to interdepartmental care team. Patient will be transported by tile setter apprentice at time of discharge.
--- NOTE | 2020-12-07 17:36 | PDOC.CMSAFED ---
- If Service Date Differs Date of service: 12/07/20 Time of Service: 17:36 Care Management Safety Plan Status: Involuntary - Reason for Wait Reason for Wait: Inpatient Admission INVOLUNTARY FOR INPATIENT PSYCHIATRIC STABILIZATION. A huddle is held this afternoon with Dr. Gonzalez, ED provider, Salina, nursing supervisor filling and packing, Coretta, charge nurse, Phi, RN, Maribel, RN, and GENARO Collins. Safety plan has been established to meet the needs of the patient, and consideration of the care team, to adhere to patient goals, identify restrictions based on behavioral status, address nutrition, and determine allowed personal belongings, tools for hygiene and personal care. Determine level of activity including ambulation, level of supervision, visitors, and determine privileges based on behaviors and level of engagement by pt. SAFETY PLAN: 1. Will remain on SI/HI precautions. In Paper Clothes 2. Will remain in room under direct supervision of one-on-one staff at all times provided by CPSO, KIANNA, COMPENSATION DIRECTOR switchboard operator receptionist. 3. May have paper cups, plates, finger foods as well as a cardboard spoon with which to eat meals. 4. Follow [facility] Management of the Admitted Behavioral Health Patient policy. 5. Personal care: Shower permitted with supervision at RN discretion. 6. No personal belongings. 7. Visitors: Per [facility] visitor policy and at RN discretion. Visits will end at 10:00 pm. 8. Activities: Soft cart items, music tablet, television and remote if available, and other activities at RN discretion. 9. Bathroom privileges with escort while in the ED. May use bathroom available in room without restrictions on Med/Surg. 10. Phone: May use hospital phone for incoming and outgoing telephone calls at RN discretion. 11. Due to INVOLUNTARY status, patient is being held at [facility] by the Department of Mental Health ([facility]). A 2nd certification by [facility] Psychiatrist occurred this morning and the EE was upheld by the State Psychiatrist. Staff will provide de-escalation support (CPI) as needed. If patient wishes to leave [facility], staff will contact [facility] Crisis Screener ([phone]) and On-Call Manager Drive ([phone]) as soon as possible. In the event of elopement, notify [facility] Police ([phone]). Patient is currently involuntarily at [facility]. [facility] Frontline Voucher Examiner will continue seeking placement. Please contact the Plumber Assistant Manager Drive ([phone]) for any needed changes to Safety Plan. Safety plan has been provided to interdepartmental care team. Patient will be transported by flare maker at time of discharge.
--- NOTE | 2020-12-07 17:42 | CMPROGNOTE_ITS ---
- If Service Date Differs Date of service: 12/07/20 Time of Service: 17:42 Care Management Progress Note S/O: Brian has been sleeping much of the day. Lawrence from [facility] came by to see Brian this morning for a reevaluation but he reportedly interacted minimally with her. Brian refused his Seroquel this afternoon. CM will continue to follow. A: Brian remains at [facility] awaiting an involuntary psychiatric placement. P: Referrals are faxed to [facility], [facility], [facility], and [facility] for review. There are no available psychiatric beds again today, so Brian will remain at [facility] on involuntary status while [facility] continues to seek placement for him. CM will continue to follow. - Status Status: Involuntary - Reason for Wait Reason for Wait: Inpatient Admission
--- NOTE | 2020-12-07 22:17 | NUR.NOTE ---
Pt refused Seriquel, stating he wants to take it when he can take all his medications. Ritalin is not able to be given until 0100. Nursing Note:
[2020-12-08] MEDS: QUEtiapine 100 MG TAB PO ×4 (00:02→19:32)
[2020-12-08] MEDS: Methylphenidate 10 MG TAB 20 MG PO ×5 (00:02→19:32)
[2020-12-08] MEDS: LORazepam 1 MG TAB PO ×7 (00:03→21:37)
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
[2020-12-08] MEDS: Omeprazole 20 MG CAPCR PO ×2 (07:42→08:08)
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
--- NOTE | 2020-12-08 10:50 | NUR.NOTE ---
Nursing Note: Patients fiance gave patient his phone and left the building. The fiance had stated that she was going to take the phone home but did not do that. This RN took the phone back from the patient. Patient was cooperative, took a number off of the phone and gave it back with no issues.
[2020-12-08] MEDS: Haloperidol 5 MG/ML VIAL IM (14:33)
[2020-12-08] MEDS: diphenhydrAMINE 50 MG/ML VIAL IM (14:33)
[2020-12-08] MEDS: LORazepam 2 MG/ML VIAL IM (14:33)
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
--- NOTE | 2020-12-08 17:45 | NUR.NOTE ---
Nursing Note: This RN brought the patient a food menu and got his dinner order. The patient told this RN that he needs to urinate. This RN stated okay, let me order your food before the kitchen closes and then i'll be back. This RN went back to the nursing station to call the kitchen. While on the phone the CPSO said over the radio she has an immediate need for a nurse to come to the room. This RN and ROBBIN Yip went with to the patients room to find the patient laying with both arms out of restraints and he sated look what I did and waved his arms. Maliha Chilel was called.
[2020-12-08 18:24] VITALS: BP 122/85; PULSE 80; RESP 18; TEMP 36.6
--- NOTE | 2020-12-08 18:31 | NUR.NOTE ---
Addendum entered by Tamara Diaz 12/08/20 18:33: Patient ate all his dinner. Requested to call his fiancee. This RN stated that she would ask the provider if he could use the phone. When this RN left the room, the CPSO said over the radio that she heard Velcro. The patient was trying to remove his left extremity restraint. This RN and Rn Phi went into the room to tell the patient that he could not remove the restraint and that if it was hurting or itchy he needed to let the CPSO know and the RN would come reassess. The patient verbally agreed to this. Original Note: Nursing Note: This RN brought the patient his dinner tray. The patient also took his PRN Lorazepam PO. Patient has three restraints in place. Right arm left out of restraint so that the patient can eat dinner.
--- NOTE | 2020-12-08 18:54 | NUR.NOTE ---
Nursing Note: This RN was advised by CPSO that he was trying to take off his restraints again. This RN went into the room and asked what was happening. Patient stated he needed to urinate. Phi RN, and Rosalio RN went into the room to help the patient with a urinal. This RN requested an order to reapply all four restraints until the patient can be cooperative and stop trying to remove his restraints.
--- NOTE | 2020-12-08 19:04 | PDOC.CMSAFED ---
- If Service Date Differs Date of service: 12/08/20 Time of Service: 19:04 Care Management Safety Plan Status: Involuntary - Reason for Wait Reason for Wait: Inpatient Admission INVOLUNTARY FOR INPATIENT PSYCHIATRIC STABILIZATION. Multiple huddles and interactions with the patient today by CM. See CM progress note for timeline of events. At this time, Brian is in restraints, which are being reviewed regularly to determine the need for restraints. Visitation is currently suspended, as well as phone calls, with the exception of paralegal secretary. Safety plan has been established to meet the needs of the patient, and consideration of the care team, to adhere to patient goals, identify restrictions based on behavioral status, address nutrition, and determine allowed personal belongings, tools for hygiene and personal care. Determine level of activity including ambulation, level of supervision, visitors, and determine privileges based on behaviors and level of engagement by pt. SAFETY PLAN: 1. Will remain on SI/HI precautions. In Paper Clothes 2. Will remain in room under direct supervision of one-on-one staff at all times provided by CPSO, ACCOUNT INSTALLER, VEST BUSHELER engraver apprentice decorative. 3. May have paper cups, plates, finger foods as well as a cardboard spoon with which to eat meals. 4. Follow [facility] Management of the Admitted Behavioral Health Patient policy. 5. Personal care: Shower permitted with supervision at RN discretion. 6. No personal belongings. 7. Visitors: No visitation at this time. This will be reviewed in daily huddle. 8. Activities: Soft cart items, music tablet, television and remote if available, and other activities at RN discretion. 9. Bathroom privileges with escort while in the ED. May use bathroom available in room without restrictions on Med/Surg. 10. Phone: Limited to paralegal secretary at this time. 11. Due to INVOLUNTARY status, patient is being held at [facility] by the Department of Mental Health ([facility]). A 2nd certification by [facility] Psychiatrist occurred and the EE was upheld by the State Psychiatrist. Staff will provide de-escalation support (CPI) as needed. If patient wishes to leave [facility], staff will contact [facility] Crisis Screener ([phone]) and On-Call Director Of Bands ([phone]) as soon as possible. In the event of elopement, notify [facility] Police ([phone]). Patient is currently involuntarily at [facility]. [facility] Frontline Heavy Mobile Equipment Operator will continue seeking placement. Please contact the Boat Cleaner Director Of Bands ([phone]) for any needed changes to Safety Plan. Safety plan has been provided to interdepartmental care team. Patient will be transported by wool sacker at time of discharge.
--- NOTE | 2020-12-08 19:55 | NUR.NOTE ---
Per pt request, pt placed on bedpan with ROBBIN Yip and ROBBIN Santamaria. After a few minutes patient stated he was unable to go. Will continue to monitor. Pt remains in safety room at this time. ROBBIN Posadas took over care of patient from ROBBIN Maldonado at 1999. Nursing Note:
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
[2020-12-08] MEDS: OLANZapine 10 MG TAB PO (21:37)
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
[2020-12-09] MEDS: Haloperidol 5 MG/ML VIAL IM (04:40)
[2020-12-09] MEDS: diphenhydrAMINE 50 MG/ML VIAL IM (04:40)
[2020-12-09] MEDS: LORazepam 2 MG/ML VIAL IM (04:41)
--- NOTE | 2020-12-09 05:34 | NUR.NOTE ---
order for chemical restraint administered. Pt remained calm from [id number]. Then started yelling out at staff again. Pt was able to unlock the bed with his L arm, in an attempted to flipped stretcher. RN in to reposition bed and reposition L wrist restraint at 0500. Pt continuing to make attempts to break out of restraints and attempting to move up in stretcher and maneuver his body to aid him in freeing L wrist. RN again in to redirect and request the pt to leave the restraints alone, pt stated my fiancee will be in here in a few and we will see what happens. RN informed pt of visitor privileges and pt stated she has a master nicole, she will get in. . Pt then called RN a B*tch! before returning to his attempts of getting wrists free. 0543 pt noted to be yelling in [place]i and repeatedly kicking sliding door to room. Will continue to monitor. Nursing Note:
--- NOTE | 2020-12-09 06:25 | NUR.NOTE ---
Pt yelling out at 0626, RN in to assess. Pt stated he needed to have a BM. Pt was given the option of a bedpan and agreed. RN back with bedpan and pt stated No I do not want to use that. Again RN gave pt the options and pt continued to say he is not going to use the bedpan. Will continue to monitor. Nursing Note:
[2020-12-09] MEDS: Omeprazole 20 MG CAPCR PO (07:41)
[2020-12-09] MEDS: QUEtiapine 100 MG TAB PO (07:41)
[2020-12-09] MEDS: Methylphenidate 10 MG TAB 20 MG PO (07:42)
[2020-12-09] MEDS: LORazepam 1 MG TAB PO (07:42)
[2020-12-09 08:29] VITALS: BP 109/73; PULSE 70; RESP 16; TEMP 36.2; O2SAT 98
[2020-12-09 08:31] VITALS: BP 109/73; PULSE 70; RESP 16; TEMP 36.2
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
[2020-12-09 13:31] VITALS: BP 131/81; PULSE 71; RESP 16; TEMP 36.3; O2SAT 98
--- NOTE | 2020-12-09 13:44 | NUR.NOTE ---
patient was discharged into probation and paroles custody. Belongings will be walked to ED main entrance to be picked up by the patient s girlfriend. Nursing Note:
== END 2020-12-09 13:39 | disposition home or self-care (01) ==
PROVIDERS: Student in an Organized Health Care Education/Training Program; Emergency Provider Physician Assistant; PCP Family Medicine
DX: F41.8 Other specified anxiety disorders (principal); R45.851 Suicidal ideations; R51.9 Headache, unspecified; F14.10 Cocaine abuse, uncomplicated; Z20.822 Contact with and (suspected) exposure to COVID-19; Z03.818 Encounter for observation for suspected exposure to other biological agents ruled out; Z91.5 Personal history of self-harm; Z75.1 Person awaiting admission to adequate facility elsewhere; Z78.1 Physical restraint status; R45.6 Violent behavior
CPT/HCPCS: 36415; 80053; 80307; 87635; 99285; 70450; 80320; 80329; 85025; J1200; J1630; J2060

== ENCOUNTER 2023-06-20 13:51 | Outpatient (REF) | payer MEDICARE, MEDICAID, SELFPAY ==
[2023-06-20 22:26] LABS: ETHANOL BLOOD < 3.0 mg/dL (<10)
== END 2023-06-20 13:52 | disposition home or self-care (01) ==
LOC: LBN 13:51
PROVIDERS: PCP Family Medicine; Visit Provider Nurse Practitioner Family
DX: F10.10 Alcohol abuse, uncomplicated (principal); F11.20 Opioid dependence, uncomplicated
CPT/HCPCS: 80320